=== PATIENT | male | born 1940 | race Caucasian/White ===

== ENCOUNTER 2020-11-16 14:18 | Outpatient (CLI) | payer MEDICARE, SELFPAY | END 2020-11-16 14:19 | disposition home or self-care (01) | LOC: ANHCOVIDVC 14:18 | PROVIDERS: PCP Internal Medicine | DX: Z23 Encounter for immunization (principal) | CPT/HCPCS: 0001A; 91300 ==

== ENCOUNTER 2020-12-07 14:18 | Outpatient (CLI) | payer MEDICARE, SELFPAY | END 2020-12-07 14:19 | disposition home or self-care (01) | LOC: ANHCOVIDVC 14:18 | PROVIDERS: PCP Internal Medicine | DX: Z23 Encounter for immunization (principal) | CPT/HCPCS: 0002A; 91300 ==

== ENCOUNTER 2023-10-22 14:11 | Outpatient (RCR) | payer MEDICARE, SELFPAY ==
--- NOTE | 2023-10-22 16:01 | BUPTOPEVAL1 ---
Assessment and note entered by Angelique Delgado, PT Evaluation Information Assessment Status Evaluation Diagnosis pain in right hip, presence of artificial hip joint, oth. abnormalities of gait and mobility weakness Onset Beginning of September 2023 Subjective Information Pt reports right hip pain is horrible , started 5 -6 weeks ago. Woke up one night and was hurting like a son of a gun . Thought it would go away but it didn't. Tried using a heating pad, walking up and down steps in the house. Seems that when first getting up from sitting is very painful, has to take real tiny steps, then eventually can take longer steps . Now is starting to get unsteady with this. States was provided cyclobenzaprene and tramadol but doesn't feel like this is helping. 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 Pt reports difficult getting into his truck, unable to lift leg in without assist from hands. Also has to do steps one at a time. Reported Pain Level Pain Score 4: Self Report Additional Pain Score Comments Worsens with bending really low, and with getting up and down. Pain radiates to inside of right knee Assessment PT Clinical Summary Pt presents with right hip pain that occurred suddenly 6 weeks ago. 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 Pt demo's decreased ROM due to pain as well as tight hip flexors and decreased strength. Pt also demo's significantly effected gait due to pain and weakness. Pt will benefit from therapy to address range, strength, mobility, gait, and pain in order to improve functional mobility. Plan of Care Interventions Electrical Stimulation,Hot Pack/Cold Pack,Manual Therapy,Neuro Re-education,Patient/Caregiver Educati,Therapeutic Activities,Therapeutic Exercise,Self-Care/Home Management PT Services Indicated Yes Treatment Frequency and 1-2x weekly x 8 visits Duration These treatments will address the objective and functional deficits as defined above. The patient will be advanced safely and appropriately in order for the patient to progress towards his/her prior level of function. Additional exercises will be introduced and as well as a comprehensive home exercise program upon discharge, if needed, ?to ensure carryover of functional gains achieved in the clinic. This treatment plan has been reviewed and agreement upon by the patient.
--- NOTE | 2023-10-22 16:02 | OPREHPOC ---
Outpatient Therapy Plan of Care This is a Multidisciplinary Plan of Care that may contain components documented by all disciplines (PT, OT, and ST.) PT Goal 1 Goal Pt will be independent in HEP Pt will verbalize understanding of diagnosis and prognosis Target Visit 8 PT Problem 2 PT Problem #2 Impaired Gait PT Goal 1 Goal Pt will demo improved mayte, step-length, and stance time with 2w-w for functional mobility Target Visit 4 PT Goal 2 Goal Pt will demo equal step length and stance time right and left LEs with LRAD x 150 ft in 2 min walk test. Target Visit 8 PT Problem 3 PT Problem #3 Impaired Flexibility PT Goal 1 Goal Pt will report lowest pain rating of 0/10 Target Visit 4 PT Goal 2 Goal Pt will report greatest pain level at 5/10 or less to improve ADLs and activities Target Visit 8 PT Problem 4 PT Problem #4 Impaired Strength PT Goal 1 Goal Pt will demo equal strength RLE and LLE in all tested planes Target Visit 4 PT Goal 2 Goal Pt will demo strength of 4/5 in all tested planes Target Visit 8
--- NOTE | 2023-11-27 17:06 | PTOPDC ---
Assessment and note entered by Angelique Delgado, PT Assessment Status Discharge - Pt Not Present Diagnosis pain in right hip, presence of artificial hip joint Onset Beginning of September 2023 Assessment PT Clinical Summary Pt attended therapy evaluation. We attempted to call and schedule patient multiple times without success. Thus we are discharging patient from therapy services due to nonattendance. Plan of Care PT Services Indicated no
== END 2023-11-28 10:28 | disposition home or self-care (01) ==
LOC: ANHHIPT 14:11
PROVIDERS: PCP Family Medicine; Visit Provider Family Medicine
DX: M25.551 Pain in right hip (principal); Z96.641 Presence of right artificial hip joint
CPT/HCPCS: 97110; 97162

== ENCOUNTER 2024-02-12 14:45 | Outpatient (RCR) | payer MEDICARE, SELFPAY ==
--- NOTE | 2024-01-05 11:50 | OPREHPOC ---
Outpatient Therapy Plan of Care This is a Multidisciplinary Plan of Care that may contain components documented by all disciplines (PT, OT, and ST.) PT Problem 1 PT Problem #1 Knowledge Deficit PT Goal 1 Goal pt will perform HEPs indep Target Visit 4 PT Problem 2 PT Problem #2 Pain PT Goal 1 Goal pt will report 3/10 pain levels with activities to improve functional mobilty. Target Visit 8 PT Problem 3 PT Problem #3 Impaired Strength PT Goal 1 Goal pt will demonstrate 5/5 strength to BLE grossly Target Visit 8 PT Problem 4 PT Problem #4 Impaired Balance PT Goal 1 Goal pt will demonstrate Tinettti Assessment score of 21/28 or more to reduce risk for falls Target Visit 8 PT Problem 5 PT Problem #5 Impaired Gait PT Goal 1 Goal pt will demonstrate improved/normalized gait pattern with LRAD Target Visit 8
--- NOTE | 2024-01-05 11:50 | PTOPEVAL1 ---
Assessment and note entered by Lilia Bates, PT Evaluation Information Assessment Status Evaluation Diagnosis R hip pain, unsteadiness on feet Therapy conditions: pain, weakness, decreased balance, gait impairments Onset approx 3 weeks ago Subjective Information Pt reports falling on the ground due to tripping over a cat's toy and landed on the R hip ( artificial hip). Pain was worsening which prompted him to seek MD attention, had x-rays which showed negative for fractures, however, there is noted osteolysis. Pt states is taking pain pills to help reduce the pain; have difficulty with standing and or sitting for long periods of time, going up/ down stairs but uses the up with the good and down with the bad technique to get by and using B HRs for support. Has a SC at home but does not like using it. Assessment PT Clinical Summary Pt presents with increased pain to R hip, impaired mobility, weakness, balance deficits and gait deviations. States difficulty with weight bearing tasks and bending/squatting due to pain. Skilled PT necessary to reduce pain levels, improve ROM and strength, improve balance to reduce risk for falls and improve functional mobility. Plan of Care Interventions Hot Pack/Cold Pack,Manual Therapy,Neuro Re- education,Patient/Caregiver Education,Therapeutic Activities,Therapeutic Exercise PT Services Indicated Yes These treatments will address the objective and functional deficits as defined above. The patient will be advanced safely and appropriately in order for the patient to progress towards his/her prior level of function. Additional exercises will be introduced and as well as a comprehensive home exercise program upon discharge, if needed, ?to ensure carryover of functional gains achieved in the clinic. This treatment plan has been reviewed and agreement upon by the patient.
--- NOTE | 2024-03-09 14:02 | PCPTNOTE ---
Admitting Provider: Attending Provider: Esteban Parham MD Patient:Robbi Jewell Date of :1940 Patient has not returned for any further treatments since 02/12/2024. After multiple attempts to contact patient for further scheduling, we were unsuccessful in reaching patient. Therefore he will be discharged at this time. Patient?s initial visit was on 01/01/2024 13:15 and he had a total of 8 visits. The goals have not been met. Thank you for referring this patient to [facility]. Please review, sign, date and return this discharge summary [facility]UCE. I have been updated about the patient's current status and I agree with discharge from the above service at this time. Referring Physician Date
== END 2024-03-09 14:59 | disposition home or self-care (01) ==
LOC: ANHHIPT 14:45
PROVIDERS: PCP Family Medicine; Visit Provider Family Medicine
DX: M25.551 Pain in right hip (principal); Z96.641 Presence of right artificial hip joint
CPT/HCPCS: 97110; 97140; 97161; 97530